=== PATIENT | female | born 1955 ===

== ENCOUNTER 2022-08-07 21:31 | Emergency (ER) | payer MEDICARE ==
[2022-08-08 00:16] LABS: #Basophils 0.1 10x3/uL (0.0-0.2); #Eosinphils 0.1 10x3/uL (0.0-0.5); #Monocytes 0.5 10x3/uL (0.0-1.1); #Neutrophils 9.3 10x3/uL (1.5-8.4); %Basophils 0.6 % (0.0-2.0); %Eosinophils 0.7 % (0.0-6.0); %Lymphocytes 12.5 % (18.0-47.0); %Monocytes 4.5 % (0.0-10.0); %Neutrophils 81.3 % (40.0-75.0); Hemoglobin 14.3 g/dL (12.0-15.5); Mean Corpuscular HGB CONC 31.7 g/dL (32.0-36.0); Mean Corpuscular Hemoglobin 26.2 pg (27.0-33.0); Mean Corpuscular Volume 82.6 fl (81.6-98.3); Mean Platelet Volume 12.6 fl (7.4-10.4); Platelet Count 247 10x3/uL (150-450); RBC Distribution Width 14.3 % (11.5-14.5); Red Blood Cell (RBC) Count 5.46 10x6/uL (3.90-5.03); White Blood Cell (WBC) Count 11.5 10x3/uL (3.5-10.5)
[2022-08-08 00:28] LABS: ALT (SGPT) 14 U/L (8-55); AST (SGOT) 19 U/L (5-34); Albumin 4.3 g/dL (3.4-4.8); Alkaline Phosphatase 80 U/L (40-110); Anion Gap 13 mmol/L (10-20); BUN (Urea Nitrogen) 11 mg/dL (9.8-20.1); Bilirubin, Total 0.8 mg/dL (0.2-1.2); Calc. Creatinine Clearance 0 mL/min (70-130); Calcium 9.6 mg/dL (7.8-10.44); Carbon Dioxide 27 mmol/L (23-31); Chloride 103 mmol/L (98-107); Estimated GFR 77; Globulin 3.5 g/dL (2.4-3.5); Glucose 116 mg/dL (80-115); Magnesium 2.2 mg/dL (1.6-2.6); PTT 25.6 sec (22.0-33.0); Potassium 4.1 mmol/L (3.5-5.1); Protein, Total 7.8 g/dL (5.8-8.1); Prothrombin Time 10.4 sec (9.5-12.1); Sodium 139 mmol/L (136-145)
[2022-08-08] MEDS ORDERED: Morphine 4 MG/ML VIAL ONE (00:44)
[2022-08-08] MEDS ORDERED: Iopamidol 300 61% 100 ML VIAL FS ONE (10:25)
== END 2022-08-08 02:35 | disposition home or self-care (01) ==
LOC: CSHERS 21:31
DX: K62.5 Hemorrhage of anus and rectum (principal); R11.2 Nausea with vomiting, unspecified
CPT/HCPCS: 36415; 74177; 80053; 83735; 85025; 85610; 85730; 86850; 86900; 86901; J2270; Q9967

== ENCOUNTER 2023-05-21 04:02 | Emergency (ER) | payer MEDICARE | END 2023-05-21 05:35 | disposition home or self-care (01) | LOC: CSHERS 04:02 | DX: S52.102A Unspecified fracture of upper end of left radius, initial encounter for closed fracture (principal); I10 Essential (primary) hypertension; W19.XXXA Unspecified fall, initial encounter | CPT/HCPCS: 24655 ==